=== PATIENT | female | born 1985 | race African-American/Black ===

== ENCOUNTER 2017-11-28 13:43 | Inpatient (IN) | payer OTHER ==
[2017-11-28 14:14] VITALS: BMI 53.8
--- NOTE | 2017-11-28 16:22 | HP ---
CIWA Score - CIWA Score Nausea/Vomitin-Mild Nausea/No Vomiting Muscle Tremors: 1-None Visible, but [place] Anxiety: 4-Mod. Anxious/Guarded Agitation: 0-Normal Activity Paroxysmal Sweats: 1-Minimal Palms Moist Orientation: 0-Oriented Tacttile Disturbances: 1-Very Mild Itch/Numbness Auditory Disturbances: 2-Mild Harshness/Frighten Visual Disturbances: 2-Mild Sensitivity Headache: 0-None Present CIWA-Ar Total Score: 12 Admission ROS BHS - HPI Allergies/Adverse Reactions: Allergies Allergy/AdvReac Type Severity Reaction Status Date / Time No Known Allergies Allergy Verified 11/28/17 16:16 History of Present Illness: pt here requesting detox from etoh use , reports 1 pint/day & 1 beer/day since approximately 5 years ago , first age of use 16 , reports tremors if not drinking, + tremors in the mornings, nausea / vomiting , starts drinking around 5:30 pm until " it's finished " , reports was prompted yesterday by family to come to detox due to continued ETOH use since the weekend , denies blackouts , + seizures latest 1 years ago , denies prior detox tx . Does not drive . illicits : occasional cannabis tobacco : denies pmhx : denies pshx : adenoids age 14 psych : denies lmp 11/17/17 upt neg utox neg for all SHAW 0.000 Exam Limitations: No Limitations - Ebola screening Have you traveled outside of the country in the last 21 days: No (N) Have you had contact with anyone from an Ebola affected area: No Have you been sick,other than usual withdrawal symptoms: No Do you have a fever: No - Review of Systems Constitutional: See HPI EENT: reports: See HPI, Other (glasses myopia / reading) Respiratory: reports: No Symptoms reported Cardiac: reports: No Symptoms Reported GI: reports: See HPI, Nausea, Vomiting : reports: No Symptoms Reported, Other (reports spasms intermittent) Musculoskeletal: reports: No Symptoms Reported Integumentary: reports: No Symptoms Reported Neuro: reports: See HPI Psychiatric: reports: No Sypmtoms Reported Patient History - Smoking Cessation Smoking history: Never smoked Initiated information on smoking cessation: No - Substances Abused Alcohol Route: Oral Frequency: Daily Amount used: LIQUOR- 1 PINT, BEER- 1 ( 12oz) Age of first use: 32 Date of Last Use: 11/27/17 Family Disease History - Family Disease History Family Disease History: Other: Mother (sarcoidosis ) Admission Physical Exam [facility] - Vital Signs Vital Signs: Vital Signs - 24 hr 11/28/17 14:11 Temperature 98.3 F Pulse Rate 104 H Respiratory 20 Rate Blood Pressure 166/103 H - Physical General Appearance: Yes: Nourished, Appropriately Dressed, Moderate Distress, Obese, Tremorous, Anxious, Other (guarded) HEENTM: Yes: Within Normal Limits, EOMI, Hearing grossly Normal, Normal ENT Inspection, Normocephalic, Normal Voice, SARATH, Pharynx Normal Respiratory: Yes: Within Normal Limits, Chest Non-Tender, Lungs Clear, Normal Breath Sounds, No Respiratory Distress, No Accessory Muscle Use Neck: Yes: Within Normal Limits, No masses,lesions,Nodules, Trachea in good position Cardiology: Yes: Regular Rhythm, Regular Rate, Tachycardia Abdominal: Yes: Non Tender, Soft, Protuberent Genitourinary: Yes: Within Normal Limits Back: Yes: Within Normal Limits, Normal Inspection Musculoskeletal: Yes: Within Normal Limits, Gait Steady, Pelvis Stable Extremities: Yes: Normal Capillary Refill, Normal Range of Motion, Non-Tender, Tremors, Pedal Edema Neurological: Yes: Fully Oriented, Alert, Motor Strength 5/5, Normal Mood/Affect , Normal Response, Finger to Nose (fair , + tremors), Depressed Affect Integumentary: Yes: Normal Color, Dry, Warm - Diagnostic (1) Alcohol withdrawal Current Visit: Yes Status: Acute Qualifiers: Complication of substance-induced condition: uncomplicated Qualified Code(s ): F10.230 - Alcohol dependence with withdrawal, uncomplicated [facility] Breath Alcohol Content Breath Alcohol Content: 0 Urine Pregancy Test - Result Urine Test Results: Negative- NO Line Present Urine Drug Screen - Results Drug Screen Negative: Yes
[2017-11-28] MEDS ORDERED: guaiFENesin/D-METHORPHAN HB 10 ML UNIT-DOSE CUPS PO PRN (16:30)
[2017-11-28] MEDS ORDERED: chlordiazePOXIDE HCL 25 MG CAPSULE PO PRN (16:30)
[2017-11-28] MEDS ORDERED: MAG HYDROX/AL HYDROX/SIMETH 30 ML UNIT-DOSE CUP PO PRN (16:30)
[2017-11-28] MEDS ORDERED: MENTHOL/PHENOL 1 EACH UD MM PRN (16:30)
[2017-11-28] MEDS ORDERED: IBUPROFEN 400 MG TABLET (FP) PO PRN (16:30)
[2017-11-28] MEDS ORDERED: MAGNESIUM HYDROX 2400MG/30ML ORAL SUSPENSION 30 ML CUP PO PRN (16:30)
[2017-11-28] MEDS ORDERED: ACETAMINOPHEN 325 MG TABLET (FP) PO PRN (16:30)
[2017-11-28] MEDS ORDERED: P-EPHED 60MG/TRIPROLIDI 2.5MG TABLET PO PRN (16:30)
[2017-11-28] MEDS ORDERED: MAGNESIUM CITRATE 300 ML BOTTLE PO PRN (16:30)
[2017-11-28] MEDS ORDERED: chlordiazePOXIDE HCL 25 MG CAPSULE PO ONE (17:30)
[2017-11-28] MEDS ORDERED: cloNIDine HCL 0.1 MG TABLET PO ONE (21:11)
--- NOTE | 2017-11-28 21:16 | PN ---
[facility] Progress Note Note: Patient's blood pressure is B/P 150/104. Patient is asymptomatic. Vital Signs Temperature 99.3 F 11/28/17 20:47 Pulse Rate 104 H 11/28/17 14:11 Respiratory Rate 20 11/28/17 20:47 Blood Pressure 150/104 H 11/28/17 20:47 O2 Sat by Pulse Oximetry (%) Action: Clonidine 0.1mg tablet oral ordered
[2017-11-28] MEDS ORDERED: MELATONIN 5 MG TABLETS PO PRN (22:00)
[2017-11-28] MEDS: chlordiazePOXIDE HCL 25 MG CAPSULE PO SCH (22:32)
[2017-11-28] MEDS: THIAMINE HCL 100 MG TABLET (FP) PO SCH (22:32)
[2017-11-29 02:05] LABS: URINE APPEARANCE CLEAR; URINE BILIRUBIN NEGATIVE (<2.0 mg/dL); URINE COLOR YELLOW; URINE GLUCOSE (UA) NEGATIVE (NEGATIVE); URINE KETONE NEGATIVE (NEGATIVE); URINE LEUK ESTERASE NEGATIVE (NEGATIVE); URINE NITRITE NEGATIVE (NEGATIVE); URINE PROTEIN NEGATIVE (NEGATIVE); URINE UROBILINOGEN NEGATIVE mg/dL (0.2-1.0)
[2017-11-29 02:15] LABS: EPI CELLS FEW /HPF (FEW); URINE BACTERIA RARE /hpf (NONE SEEN); URINE HYALINE CAST 15 /lpf; URINE MUCUS MODERATE
[2017-11-29] MEDS: chlordiazePOXIDE HCL 25 MG CAPSULE PO SCH ×4 (05:56→22:19)
[2017-11-29] MEDS: PRENATAL VITAMINS W/ FOLIC ACID TABLET (FP) PO SCH (10:11)
--- NOTE | 2017-11-29 10:35 | EKG ---
Test Reason : Blood Pressure : / mmHG Vent. Rate : 105 BPM Atrial Rate : 105 BPM P-R Int : 142 ms QRS Dur : 084 ms QT Int : 354 ms P-R-T Axes : 045 016 019 degrees QTc Int : 467 ms POOR DATA QUALITY, INTERPRETATION MAY BE ADVERSELY AFFECTED SINUS TACHYCARDIA MINIMAL VOLTAGE CRITERIA FOR LVH, MAY BE NORMAL VARIANT NONSPECIFIC ST ABNORMALITY ABNORMAL ECG NO PREVIOUS ECGS AVAILABLE Confirmed by CAMI ENGLAND, AREN ([id number]) on 11/29/2017 10:34:52 AM Referred By: Confirmed By:AREN ALMANZA MD
[2017-11-29 11:21] LABS: ALK PHOS 71 U/L (45-117); ANION GAP 15 MMOL/L (8-16); BILIRUBIN,TOTAL 0.8 mg/dL (0.2-1); BLOOD UREA NITROGEN 11 mg/dL (7-18); CALCIUM 8.7 mg/dL (8.5-10.1); CHLORIDE 103 mmol/L (98-107); CO2 22 mmol/L (21-32); GLUCOSE,RANDOM 99 mg/dL (74-106); POTASSIUM 3.1 mmol/L (3.5-5.1); SGOT/AST 50 U/L (15-37); SGPT/ALT 69 U/L (13-61); SODIUM 140 mmol/L (136-145); TOT PROT 6.6 g/dl (6.4-8.2)
--- NOTE | 2017-11-29 12:36 | PN ---
[facility] CIWA - CIWA Score Nausea/Vomitin-Mild Nausea/No Vomiting Muscle Tremors: 2 Anxiety: 3 Agitation: 2 Paroxysmal Sweats: 2 Orientation: 0-Oriented Tacttile Disturbances: 1-Very Mild Itch/Numbness Auditory Disturbances: 0-None Visual Disturbances: 0-None Headache: 0-None Present CIWA-Ar Total Score: 11 S Progress Note (SOAP) Subjective: c/o diarrhea x 1 days, interrupted sleep, body aches Objective: 11/29/17 12:34 Vital Signs Temperature 98.1 F 11/29/17 10:12 Pulse Rate 98 H 11/29/17 10:12 Respiratory Rate 18 11/29/17 10:12 Blood Pressure 141/92 11/29/17 10:12 O2 Sat by Pulse Oximetry (%) Laboratory Last Values Sodium 140 mmol/L (136-145) 11/29/17 08:00 Potassium 3.1 mmol/L (3.5-5.1) L 11/29/17 08:00 Chloride 103 mmol/L (98-107) 11/29/17 08:00 Carbon Dioxide 22 mmol/L (21-32) 11/29/17 08:00 Anion Gap 15 MMOL/L (8-16) 11/29/17 08:00 BUN 11 mg/dL (7-18) 11/29/17 08:00 Creatinine 1.0 mg/dL (0.55-1.3) 11/29/17 08:00 Creat Clearance w eGFR > 60 (>60) 11/29/17 08:00 Random Glucose 99 mg/dL (74-106) 11/29/17 08:00 Calcium 8.7 mg/dL (8.5-10.1) 11/29/17 08:00 Total Bilirubin 0.8 mg/dL (0.2-1) 11/29/17 08:00 AST 50 U/L (15-37) H 11/29/17 08:00 ALT 69 U/L (13-61) H 11/29/17 08:00 Alkaline Phosphatase 71 U/L (45-117) 11/29/17 08:00 Total Protein 6.6 g/dl (6.4-8.2) 11/29/17 08:00 Albumin 3.0 g/dl (3.4-5.0) L 11/29/17 08:00 Urine Color Yellow 11/29/17 00:01 Urine Appearance Clear 11/29/17 00:01 Urine pH 6.0 (5.0-8.0) 11/29/17 00:01 Ur Specific [place] 1.017 (1.010-1.035) 11/29/17 00:01 Urine Protein Negative (NEGATIVE) 11/29/17 00:01 Urine Glucose (UA) Negative (NEGATIVE) 11/29/17 00:01 Urine Ketones Negative (NEGATIVE) 11/29/17 00:01 Urine Blood 3+ (NEGATIVE) H 11/29/17 00:01 Urine Nitrite Negative (NEGATIVE) 11/29/17 00:01 Urine Bilirubin Negative (<2.0 mg/dL) 11/29/17 00: Urine Urobilinogen Negative mg/dL (0.2-1.0) 11/29/17 00:01 Ur Leukocyte Esterase Negative (NEGATIVE) 11/29/17 00:01 Urine WBC (Auto) 5 /hpf (3-5) 11/29/17 00:01 Urine RBC (Auto) 2 /hpf (0-3) 11/29/17 00:01 Ur Epithelial Cells Few /HPF (FEW) 11/29/17 00:01 Urine Bacteria Rare /hpf (NONE SEEN) 11/29/17 00:01 Hyaline Casts 15 /lpf 11/29/17 00:01 Urine Mucus Moderate 11/29/17 00:01 RPR Titer Nonreactive (NONREACTIVE) 11/29/17 08:00 HIV 1&2 Antibody Screen Negative 11/29/17 08:00 HIV P24 Antigen Negative 11/29/17 08:00 labs reviewed, d/c acetaminophen Aox3 no distress no adventitious breath sounds ABD non-tender non distended full ROM ambulating in unit withdrawal sx immodium prn increase fluids continue detox continue to monitor
[2017-11-29 12:58] LABS: HEMATOCRIT 32.2 % (32.4-45.2); HEMOGLOBIN 11.1 GM/dL (10.7-15.3); MCH 34.7 pg (25.7-33.7); MCHC 34.5 g/dl (32.0-36.0); MEAN CELL VOLUME 100.6 fl (80-96); MEAN PLT VOLUME 8.2 fl (7.5-11.1); PLATELET COUNT 191 K/MM3 (134-434); RDW 15.6 % (11.6-15.6); WHITE BLOOD COUNT 4.7 K/mm3 (4.0-10.0)
[2017-11-29] MEDS: THIAMINE HCL 100 MG TABLET (FP) PO SCH (22:19)
[2017-11-30] MEDS: chlordiazePOXIDE HCL 25 MG CAPSULE PO SCH ×3 (06:03→17:56)
[2017-11-30] MEDS: PRENATAL VITAMINS W/ FOLIC ACID TABLET (FP) PO SCH (10:10)
--- NOTE | 2017-11-30 11:44 | PN ---
[facility] CIWA - CIWA Score Nausea/Vomitin-No Nausea/No Vomiting Muscle Tremors: 4-Moderate,w/Arms Extend Anxiety: 2 Agitation: 3 Paroxysmal Sweats: 1-Minimal Palms Moist Orientation: 0-Oriented Tacttile Disturbances: 0-None Auditory Disturbances: 0-None Visual Disturbances: 0-None Headache: 1-Very Mild CIWA-Ar Total Score: 11 S Progress Note (SOAP) Subjective: restlessness irritable sweat tremor Objective: 11/30/17 11:43 Vital Signs Temperature 97.7 F 11/30/17 09:46 Pulse Rate 95 H 11/30/17 09:46 Respiratory Rate 20 11/30/17 09:46 Blood Pressure 153/98 11/30/17 09:46 O2 Sat by Pulse Oximetry (%) Laboratory Last Values WBC 4.7 K/mm3 (4.0-10.0) 11/29/17 08:00 RBC 3.20 M/mm3 (3.60-5.2) L 11/29/17 08:00 Hgb 11.1 GM/dL (10.7-15.3) 11/29/17 08:00 Hct 32.2 % (32.4-45.2) L 11/29/17 08:00 MCV 100.6 fl (80-96) H 11/29/17 08:00 MCH 34.7 pg (25.7-33.7) H 11/29/17 08:00 MCHC 34.5 g/dl (32.0-36.0) 11/29/17 08:00 RDW 15.6 % (11.6-15.6) 11/29/17 08:00 Plt Count 191 K/MM3 (134-434) 11/29/17 08:00 MPV 8.2 fl (7.5-11.1) 11/29/17 08:00 Sodium 140 mmol/L (136-145) 11/29/17 08:00 Potassium 3.1 mmol/L (3.5-5.1) L 11/29/17 08:00 Chloride 103 mmol/L (98-107) 11/29/17 08:00 Carbon Dioxide 22 mmol/L (21-32) 11/29/17 08:00 Anion Gap 15 MMOL/L (8-16) 11/29/17 08:00 BUN 11 mg/dL (7-18) 11/29/17 08:00 Creatinine 1.0 mg/dL (0.55-1.3) 11/29/17 08:00 Creat Clearance w eGFR > 60 (>60) 11/29/17 08:00 Random Glucose 99 mg/dL (74-106) 11/29/17 08:00 Calcium 8.7 mg/dL (8.5-10.1) 11/29/17 08:00 Total Bilirubin 0.8 mg/dL (0.2-1) 11/29/17 08:00 AST 50 U/L (15-37) H 11/29/17 08:00 ALT 69 U/L (13-61) H 11/29/17 08:00 Alkaline Phosphatase 71 U/L (45-117) 11/29/17 08:00 Total Protein 6.6 g/dl (6.4-8.2) 11/29/17 08:00 Albumin 3.0 g/dl (3.4-5.0) L 11/29/17 08:00 Urine Color Yellow 11/29/17 00:01 Urine Appearance Clear 11/29/17 00:01 Urine pH 6.0 (5.0-8.0) 11/29/17 00:01 Ur Specific [place] 1.017 (1.010-1.035) 11/29/17 00:01 Urine Protein Negative (NEGATIVE) 11/29/17 00:01 Urine Glucose (UA) Negative (NEGATIVE) 11/29/17 00:01 Urine Ketones Negative (NEGATIVE) 11/29/17 00:01 Urine Blood 3+ (NEGATIVE) H 11/29/17 00:01 Urine Nitrite Negative (NEGATIVE) 11/29/17 00:01 Urine Bilirubin Negative (<2.0 mg/dL) 11/29/17 00:01 Urine Urobilinogen Negative mg/dL (0.2-1.0) 11/29/17 00:01 Ur Leukocyte Esterase Negative (NEGATIVE) 11/29/17 00:01 Urine WBC (Auto) 5 /hpf (3-5) 11/29/17 00:01 Urine RBC (Auto) 2 /hpf (0-3) 11/29/17 00:01 Ur Epithelial Cells Few /HPF (FEW) 11/29/17 00:01 Urine Bacteria Rare /hpf (NONE SEEN) 11/29/17 00:01 Hyaline Casts 15 /lpf 11/29/17 00:01 Urine Mucus Moderate 11/29/17 00:01 RPR Titer Nonreactive (NONREACTIVE) 11/29/17 08:00 HIV 1&2 Antibody Screen Negative 11/29/17 08:00 HIV P24 Antigen Negative 11/29/17 08:00 lab noted K+ low Assessment: 11/30/17 11:45 withdrawal sx low K+ Plan: continue detox K+ supplement repeat K+
[2017-11-30] MEDS: POTASSIUM CHLORIDE TABS 20 MEQ TABLET.ER (FP) PO SCH ×2 (12:22→22:26)
[2017-11-30] MEDS: THIAMINE HCL 100 MG TABLET (FP) PO SCH (22:25)
[2017-11-30] MEDS: chlordiazePOXIDE 5 MG CAPSULE PO SCH (22:26)
[2017-12-01] MEDS: chlordiazePOXIDE 5 MG CAPSULE PO SCH ×3 (06:06→18:25)
[2017-12-01] MEDS: PRENATAL VITAMINS W/ FOLIC ACID TABLET (FP) PO SCH (10:09)
[2017-12-01] MEDS: POTASSIUM CHLORIDE TABS 20 MEQ TABLET.ER (FP) PO SCH ×2 (10:10→22:37)
--- NOTE | 2017-12-01 12:35 | PN ---
[facility] Progress Note (SOAP) Subjective: feeling better no tremor less sweat social with peers in day room discuss aftercare Objective: 12/01/17 12:34 Vital Signs Temperature 97.9 F 12/01/17 09:20 Pulse Rate 83 12/01/17 09:20 Respiratory Rate 20 12/01/17 09:20 Blood Pressure 136/78 12/01/17 09:20 O2 Sat by Pulse Oximetry (%) Laboratory Last Values WBC 4.7 K/mm3 (4.0-10.0) 11/29/17 08:00 RBC 3.20 M/mm3 (3.60-5.2) L 11/29/17 08:00 Hgb 11.1 GM/dL (10.7-15.3) 11/29/17 08:00 Hct 32.2 % (32.4-45.2) L 11/29/17 08:00 MCV 100.6 fl (80-96) H 11/29/17 08:00 MCH 34.7 pg (25.7-33.7) H 11/29/17 08:00 MCHC 34.5 g/dl (32.0-36.0) 11/29/17 08:00 RDW 15.6 % (11.6-15.6) 11/29/17 08:00 Plt Count 191 K/MM3 (134-434) 11/29/17 08:00 MPV 8.2 fl (7.5-11.1) 11/29/17 08:00 Sodium 140 mmol/L (136-145) 11/29/17 08:00 Potassium 3.6 mmol/L (3.5-5.1) 12/01/17 07:00 Chloride 103 mmol/L (98-107) 11/29/17 08:00 Carbon Dioxide 22 mmol/L (21-32) 11/29/17 08:00 Anion Gap 15 MMOL/L (8-16) 11/29/17 08:00 BUN 11 mg/dL (7-18) 11/29/17 08:00 Creatinine 1.0 mg/dL (0.55-1.3) 11/29/17 08:00 Creat Clearance w eGFR > 60 (>60) 11/29/17 08:00 Random Glucose 99 mg/dL (74-106) 11/29/17 08:00 Calcium 8.7 mg/dL (8.5-10.1) 11/29/17 08:00 Total Bilirubin 0.8 mg/dL (0.2-1) 11/29/17 08:00 AST 50 U/L (15-37) H 11/29/17 08:00 ALT 69 U/L (13-61) H 11/29/17 08:00 Alkaline Phosphatase 71 U/L (45-117) 11/29/17 08:00 Total Protein 6.6 g/dl (6.4-8.2) 11/29/17 08:00 Albumin 3.0 g/dl (3.4-5.0) L 11/29/17 08:00 Urine Color Yellow 11/29/17 00:01 Urine Appearance Clear 11/29/17 00:01 Urine pH 6.0 (5.0-8.0) 11/29/17 00:01 Ur Specific [place] 1.017 (1.010-1.035) 11/29/17 00:01 Urine Protein Negative (NEGATIVE) 11/29/17 00:01 Urine Glucose (UA) Negative (NEGATIVE) 11/29/17 00:01 Urine Ketones Negative (NEGATIVE) 11/29/17 00:01 Urine Blood 3+ (NEGATIVE) H 11/29/17 00:01 Urine Nitrite Negative (NEGATIVE) 11/29/17 00:01 Urine Bilirubin Negative (<2.0 mg/dL) 11/29/17 00:01 Urine Urobilinogen Negative mg/dL (0.2-1.0) 11/29/17 00:01 Ur Leukocyte Esterase Negative (NEGATIVE) 11/29/17 00:01 Urine WBC (Auto) 5 /hpf (3-5) 11/29/17 00:01 Urine RBC (Auto) 2 /hpf (0-3) 11/29/17 00:01 Ur Epithelial Cells Few /HPF (FEW) 11/29/17 00:01 Urine Bacteria Rare /hpf (NONE SEEN) 11/29/17 00:01 Hyaline Casts 15 /lpf 11/29/17 00:01 Urine Mucus Moderate 11/29/17 00:01 RPR Titer Nonreactive (NONREACTIVE) 11/29/17 08:00 HIV 1&2 Antibody Screen Negative 11/29/17 08:00 HIV P24 Antigen Negative 11/29/17 08:00 lab noted Assessment: 12/01/17 12:34 mild withdrawal sx Plan: medically supervised detox
[2017-12-01] MEDS: THIAMINE HCL 100 MG TABLET (FP) PO SCH (22:37)
[2017-12-01] MEDS: chlordiazePOXIDE HCL 10 MG CAPSULE PO SCH (22:37)
[2017-12-02] MEDS: chlordiazePOXIDE HCL 10 MG CAPSULE PO SCH (05:46)
[2017-12-02 08:49] VITALS: BP 128/78; PULSE 99; TEMP 97.8
--- NOTE | 2017-12-02 09:02 | DS ---
[facility] Detox Discharge Summary Admission Date: 11/28/17 Discharge Date: 12/02/17 - History Present History: Alcohol Dependence Additional Comments: 32 years old female admitted on 11/28/17 for alcohol withdrawal sx completed alcohol detox regimen tolerated well denies alcohol withdrawal sx alert oriented 3 no acute distress aftercare Dr Lauryn Cope - Physical Exam Results Vital Signs: Vital Signs Temperature 97.8 F 12/02/17 08:49 Pulse Rate 99 H 12/02/17 08:49 Respiratory Rate 18 12/02/17 08:49 Blood Pressure 128/78 12/02/17 08:49 O2 Sat by Pulse Oximetry (%) Pertinent Admission Physical Exam Findings: alcohol withdrawal sx Vital Signs Temperature 97.8 F 12/02/17 08:49 Pulse Rate 99 H 12/02/17 08:49 Respiratory Rate 18 12/02/17 08:49 Blood Pressure 128/78 12/02/17 08:49 O2 Sat by Pulse Oximetry (%) Laboratory Last Values WBC 4.7 K/mm3 (4.0-10.0) 11/29/17 08:00 RBC 3.20 M/mm3 (3.60-5.2) L 11/29/17 08:00 Hgb 11.1 GM/dL (10.7-15.3) 11/29/17 08:00 Hct 32.2 % (32.4-45.2) L 11/29/17 08:00 MCV 100.6 fl (80-96) H 11/29/17 08:00 MCH 34.7 pg (25.7-33.7) H 11/29/17 08:00 MCHC 34.5 g/dl (32.0-36.0) 11/29/17 08:00 RDW 15.6 % (11.6-15.6) 11/29/17 08:00 Plt Count 191 K/MM3 (134-434) 11/29/17 08:00 MPV 8.2 fl (7.5-11.1) 11/29/17 08:00 Sodium 140 mmol/L (136-145) 11/29/17 08:00 Potassium 3.6 mmol/L (3.5-5.1) 12/01/17 07:00 Chloride 103 mmol/L (98-107) 11/29/17 08:00 Carbon Dioxide 22 mmol/L (21-32) 11/29/17 08:00 Anion Gap 15 MMOL/L (8-16) 11/29/17 08:00 BUN 11 mg/dL (7-18) 11/29/17 08:00 Creatinine 1.0 mg/dL (0.55-1.3) 11/29/17 08:00 Creat Clearance w eGFR > 60 (>60) 11/29/17 08:00 Random Glucose 99 mg/dL (74-106) 11/29/17 08:00 Calcium 8.7 mg/dL (8.5-10.1) 11/29/17 08:00 Total Bilirubin 0.8 mg/dL (0.2-1) 11/29/17 08:00 AST 50 U/L (15-37) H 11/29/17 08:00 ALT 69 U/L (13-61) H 11/29/17 08:00 Alkaline Phosphatase 71 U/L (45-117) 11/29/17 08:00 Total Protein 6.6 g/dl (6.4-8.2) 11/29/17 08:00 Albumin 3.0 g/dl (3.4-5.0) L 11/29/17 08:00 Urine Color Yellow 11/29/17 00:01 Urine Appearance Clear 11/29/17 00:01 Urine pH 6.0 (5.0-8.0) 11/29/17 00:01 Ur Specific [place] 1.017 (1.010-1.035) 11/29/17 00:01 Urine Protein Negative (NEGATIVE) 11/29/17 00:01 Urine Glucose (UA) Negative (NEGATIVE) 11/29/17 00:01 Urine Ketones Negative (NEGATIVE) 11/29/17 00:01 Urine Blood 3+ (NEGATIVE) H 11/29/17 00:01 Urine Nitrite Negative (NEGATIVE) 11/29/17 00:01 Urine Bilirubin Negative (<2.0 mg/dL) 11/29/17 00:01 Urine Urobilinogen Negative mg/dL (0.2-1.0) 11/29/17 00:01 Ur Leukocyte Esterase Negative (NEGATIVE) 11/29/17 00:01 Urine WBC (Auto) 5 /hpf (3-5) 11/29/17 00:01 Urine RBC (Auto) 2 /hpf (0-3) 11/29/17 00:01 Ur Epithelial Cells Few /HPF (FEW) 11/29/17 00:01 Urine Bacteria Rare /hpf (NONE SEEN) 11/29/17 00:01 Hyaline Casts 15 /lpf 11/29/17 00:01 Urine Mucus Moderate 11/29/17 00:01 RPR Titer Nonreactive (NONREACTIVE) 11/29/17 08:00 HIV 1&2 Antibody Screen Negative 11/29/17 08:00 HIV P24 Antigen Negative 11/29/17 08:00 lab noted - Treatment Hospital Course: Detox Protocol Followed, Detoxed Safely, Responded well, Discharged Condition Good, Rehab Referral Accepted Patient has Accepted a Rehab Referral to: Dr Lauryn Cope for medical mental addiction issues - Medication Discharge Medications: Ambulatory Orders Unobtainable 11/28/17 - Diagnosis (1) Alcohol dependence with withdrawal Status: Acute Qualifiers: Complication of substance-induced condition: uncomplicated Qualified Code(s ): F10.230 - Alcohol dependence with withdrawal, uncomplicated - AMA Did Patient Leave Against Medical Advice: No
== END 2017-12-02 09:47 | disposition home or self-care (01) | DRG 897 ==
LOC: YASAS 13:43 → Y6N 17:05
PROC: HZ2ZZZZ Detoxification Services for Substance Abuse Treatment (ICD-10-PCS; principal; 2017-11-28)
DX: F10.230 Alcohol dependence with withdrawal, uncomplicated (principal); E87.6 Hypokalemia
CPT/HCPCS: 36415; 80053; 81003; 81015; 84132; 85027; 86593; 87389; 93005; 93010; J0735